=== PATIENT | male | born 1990 | race African-American/Black ===

== ENCOUNTER 2025-02-13 13:58 | Emergency (ER) | payer SELFPAY ==
[2025-02-13 15:15] LABS: Hematocrit 42.7 % (38.8-50.0); Hemoglobin 14.6 g/dL (13.5-17.5); Mean Corpuscular Hemoglobin 29.7 pg (27.0-33.0); Mean Corpuscular Volume 87.0 fL (81.2-95.1); Platelet Count 190 10x3/uL (150-450); Red Blood Cell (RBC) Count 4.91 10x6/uL (4.32-5.72); White Blood Cell (WBC) Count 5.80 10x3/uL (3.5-10.5)
[2025-02-13 15:33] LABS: ALT (SGPT) 96 U/L (Less than 45); AST (SGOT) 60 U/L (11-34); Acetaminophen Less than 10 mcg/mL (Less than 10); Albumin 4.1 g/dL (3.1-4.5); Alkaline Phosphatase 55 U/L (40-110); Anion Gap 11 mmol/L (10-20); BUN (Urea Nitrogen) 13 mg/dL (8.9-20.6); Bilirubin, Total 0.4 mg/dL (0.3-1.2); CK (CPK) 47 U/L (30-200); Calc. Creatinine Clearance 0 mL/min (70-130); Calcium 9.2 mg/dL (7.8-10.44); Carbon Dioxide 27 mmol/L (22-29); Chloride 108 mmol/L (98-107); Globulin 2.9 g/dL (2.4-3.5); Glucose 101 mg/dL (70-105); Potassium 4.2 mmol/L (3.5-5.1); Salicylate Less than 8.0 mg/dL (Less than 8.0); Sodium 142 mmol/L (136-145)
[2025-02-13 16:05] LABS: Glucose, Urine (Dipstick) 50 mg/dL (Negative); Leukocyte Negative (Negative); Protein, Urine (Dipstick) 30 mg/dl (Neg-Trace); Specific Gravity, Urine 1.025 (1.005-1.030)
[2025-02-13 16:12] LABS: Cocaine Metabolite Screen Negative (Negative); THC/Cannabinoid Screen PRELIM POSITIVE (Negative); Tricyclic Screen Negative (Negative)
[2025-02-13 16:18] LABS: #Basophils 0.03 10x3/uL (0.0-0.2); #Eosinophils 0.13 10x3/uL (0.0-0.5); #Monocytes 0.51 10x3/uL (0.0-1.1); #Neutrophils 3.37 10x3/uL (1.5-8.4); %Basophils 0.5 % (0.0-2.0); %Eosinophils 2.3 % (0.0-6.0); %Lymphocytes 28.3 % (18.0-47.0); %Monocytes 9.0 % (0.0-10.0); %Neutrophils 59.2 % (40.0-75.0)
[2025-02-13 16:22] LABS: Bacteria/HPF 1+ HPF (None Seen); CAUTI Indications for Culture Alt mental st,lethar; RBC/HPF 0-3 HPF (0-3); WBC/HPF 0-3 HPF (0-3)
[2025-02-13 16:23] LABS: Mucous/LPF 2+ LPF (<2+)
[2025-02-13 16:24] LABS: Urine Culture Reflex No No
== END 2025-02-13 16:23 | disposition home or self-care (01) ==
LOC: CSHERS 13:58
DX: F12.90 Cannabis use, unspecified, uncomplicated (principal)
CPT/HCPCS: 80053; 80306; 80307; 81001; 82550; 85025; 99284